=== PATIENT | female | born 1990 | race Caucasian/White ===

== ENCOUNTER 2018-07-25 14:41 | Emergency (ER) | payer OTHER ==
[2018-07-25 14:56] VITALS: BP 109/63; PULSE 90; TEMP 98.4; BMI 20.4
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
[2018-07-25] MEDS ORDERED: IBUPROFEN 400 MG TABLET (FP) PO ONE ×2 (15:52→15:53)
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
== END 2018-07-25 16:07 | disposition home or self-care (01) ==
LOC: JERFT 14:41
DX: S16.1XXA Strain of muscle, fascia and tendon at neck level, initial encounter (principal); V43.52XA Car driver injured in collision with other type car in traffic accident, initial encounter; Y92.414 Local residential or business street as the place of occurrence of the external cause; Y93.89 Activity, other specified; Y99.8 Other external cause status
CPT/HCPCS: 99281-25